=== PATIENT | female | born 1980 | race Caucasian/White ===

== ENCOUNTER 2025-04-24 10:13 | Emergency (ER) | payer BC ==
[~2025-04-24] VITALS: Ht 162.6 cm; Wt 72.6 kg
[2025-04-24 10:30] VITALS: TEMP 98.1
[2025-04-24] MEDS ORDERED: METOCLOPRAMIDE HCL 10 MG/2 ML VIAL ONE (12:04)
[2025-04-24] MEDS ORDERED: FAMOTIDINE/PF INJ 20 MG/2 ML VIAL IV ONE (12:04)
[2025-04-24] MEDS: IV LR 1000 ML 1,000 ML IV ONE (12:10)
[2025-04-24] MEDS: METOCLOPRAMIDE HCL 10 MG/2 ML VIAL IV ONE (12:10)
[2025-04-24] MEDS: FAMOTIDINE/PF INJ 20 MG/2 ML VIAL IV ONE (12:10)
[2025-04-24 12:19] LABS: CALCIUM, SERUM 9.6 mg/dL (8.5-10.1); CREATININE 0.7 mg/dL (0.6-1.3); SODIUM SERUM 137.0 mmol/L (136-145); UREA NITROGEN, BLOOD 15.0 mg/dL (7-18)
[2025-04-24 12:24] LABS: PLATELET COUNT (AUTO) 385 K/uL (150-450); RED BLOOD CELL COUNT(AUTO) 5.05 MIL/uL (4.0-5.2); RED CELL DISTRIBUTION WIDTH 12.3 % (11.5-15.0); WHITE BLOOD COUNT (AUTO) 7.2 K/uL (4.3-11.0)
[2025-04-24] MEDS ORDERED: KETOROLAC TROMETHAMINE 15 MG/ML VIAL ONE (12:24)
[2025-04-24] MEDS ORDERED: ONDANSETRON HCL/PF 4 MG/2 ML VIAL ONE (12:24)
[2025-04-24 12:25] LABS: ASPARTATE AMINOTRANSFERASE 20.0 U/L (15-37); TOTAL PROTEIN, SERUM 8.1 g/dL (6.4-8.2)
[2025-04-24] MEDS: ONDANSETRON HCL/PF 4 MG/2 ML VIAL IV ONE (12:30)
[2025-04-24] MEDS: KETOROLAC TROMETHAMINE 15 MG/ML VIAL IV ONE (12:31)
[2025-04-24] MEDS ORDERED: ONDA4TAB11 PO (13:11)
[2025-04-24] MEDS ORDERED: PROM25TA15 PO (13:11)
[2025-04-24] MEDS ORDERED: PROCHLORPERAZINE EDISYLATE 10 MG/2 ML VIAL ONE (13:25)
[2025-04-24 13:27] LABS: PREGNANCY TEST URINE QUAL NEGATIVE (NEGATIVE)
[2025-04-24] MEDS: PROCHLORPERAZINE EDISYLATE 10 MG/2 ML VIAL IVP ONE (13:34)
[2025-04-24 14:22] VITALS: BP 129/70; O2SAT 99
== END 2025-04-24 14:24 | disposition home or self-care (01) ==
LOC: ER 10:21
DX: R11.2 Nausea with vomiting, unspecified (principal); G43.909 Migraine, unspecified, not intractable, without status migrainosus; E86.0 Dehydration
CPT/HCPCS: 99285; 96374; 96375; 96361; 85025; 80048; 87086; 83690; 80076; 84703; 36415; J1885; J0780; J1200; J1308; J2765; J2405; J7120 ×2